=== PATIENT | male | born 1965 | race African-American/Black ===

== ENCOUNTER 2017-02-14 00:15 | Emergency (ER) | payer MEDICAID, OTHER ==
[~2017-02-14] VITALS: Ht 188 cm; Wt 61.0 kg
[2017-02-14] MEDS ORDERED: BACITRACIN ZINC OINT UDPKT TOP ONE (00:45)
[2017-02-14] MEDS ORDERED: LIDOCAINE HCL 1% 20ML VIAL (Pyxis) INJ MC ONE (00:45)
[2017-02-14 02:20] VITALS: BP 112/72
== END 2017-02-14 02:24 | disposition home or self-care (01) ==
LOC: ER 00:15
DX: Z43.1 Encounter for attention to gastrostomy (principal); I10 Essential (primary) hypertension; Z86.73 Personal history of transient ischemic attack (TIA), and cerebral infarction without residual deficits; Z85.028 Personal history of other malignant neoplasm of stomach
CPT/HCPCS: 43760; 99284; J3490; Z7610